=== PATIENT | male | born 1965 | race Caucasian/White ===

== ENCOUNTER 2024-01-13 13:03 | Emergency (ER) | payer BC ==
[~2024-01-13] VITALS: Ht 165.1 cm; Wt 68.0 kg
[2024-01-13 13:10] VITALS: TEMP 98.8; O2SAT 98
[2024-01-13] MEDS: LACTATED RINGERS 1,000 ML IV SCH (13:43)
[2024-01-13 13:45] LABS: BASOPHILS % 0.4 % (0.0-2.0); EOSINOPHILS % 4.6 % (0.0-5.0); HEMATOCRIT. 38.9 % (42.0-52.0); HEMOGLOBIN. 13.3 g/dL (14.0-18.0); LYMPHOCYTES % 21.4 % (20.0-50.0); MEAN CORPUSCULAR HEMOGLOBIN 33.6 pg (28.0-32.0); MEAN CORPUSCULAR HGB CONC 34.3 g/dL (31.0-37.0); MEAN CORPUSCULAR VOLUME 97.9 fL (80.0-94.0); MEAN PLATELET VOLUME 7.9 fl (7.4-10.4); MONOCYTES % 9.1 % (2.0-8.0); NEUTROPHILS % 64.5 % (40.0-76.0); PLATELET 219 x1000/uL (130-400); RED BLOOD CELL COUNT 3.97 mill/uL (4.7-6.1); RED CELL DISTRIBUTION WIDTH 12.8 % (11.6-14.6); WHITE BLOOD COUNT 9.2 x1000/uL (4.5-11.0)
[2024-01-13 13:50] LABS: CHLORIDE 103 mEq/L (98-107); POTASSIUM 3.5 mEq/L (3.5-5.1); SODIUM 137 mEq/L (136-145)
[2024-01-13 13:51] LABS: CARBON DIOXIDE 23 mEq/L (21-32)
[2024-01-13 13:56] LABS: CREATININE 1.1 mg/dL (0.6-1.3); GLUCOSE 109 mg/dL (70-105); UREA NITROGEN BLOOD 10 mg/dL (9-23)
[2024-01-13 13:58] LABS: TROPONIN I HIGH SENSITIVITY < 4 ng/L (3.0-53)
[2024-01-13 15:26] VITALS: BP 123/79; PULSE 76; RESP 15; O2SAT 98
== END 2024-01-13 15:41 | disposition home or self-care (01) ==
LOC: ER 13:03
DX: R55 Syncope and collapse (principal)
CPT/HCPCS: 80048; 85025; 84484; 36415; 71045; 93005; 96360; 99285; Z7610